=== PATIENT | female | born 1950 | race Caucasian/White ===

== ENCOUNTER 2025-02-21 11:45 | Outpatient (REF) | payer MEDICARE, SELFPAY ==
[2025-02-21 13:51] LABS: Alanine Aminotransferase 21 U/L (0-31); Albumin Level 4.3 g/dL (3.5-5.0); Alkaline Phosphatase 64 U/L (39-117); Aspartate Amino Transferase 23 U/L (5-31); Total Protein 6.8 g/dL (6.5-8.0)
== END 2025-02-21 11:46 | disposition home or self-care (01) ==
LOC: HO.LAB 11:45
PROVIDERS: PCP Family Medicine; Visit Provider Registered Nurse
DX: G40.909 Epilepsy, unspecified, not intractable, without status epilepticus (principal); R25.1 Tremor, unspecified; Z79.899 Other long term (current) drug therapy
CPT/HCPCS: 36415; 80076; 80184; 80185; 84443; 99212

== ENCOUNTER 2025-02-21 11:45 | Outpatient (AMB) | payer MEDICARE, SELFPAY ==
--- OUTSIDE RECORDS SUMMARY | 2025-02-21 11:47 | XMS_ITS | Clinical Summary ---
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 Role Phone Unavailable Primary Care Provider Unavailabl e Social History Tobacco Use Types Packs/Day Years Used Date Smoking Tobacco: Never Assessed Comments Unknown Sex and Gender Information Value Date Recorded Sex Assigned at Not on file Legal Sex Female 1:18 PM EST Gender Identity Not on file Sexual Orientation Not on file Plan of Treatment Health Maintenance Due Date Last Done Comments DTaP,Tdap,and Td Vaccines (1 - Tdap) 07/25/1967 Pneumococcal Vaccine: 50+ Ye ars (1 of 1 - PCV) 1998 Zoster Vaccines (1 of 2) 1998 Falls Risk Assessment 01/27/2022 Hepatitis C Screening 01/27/2022 Osteoporosis Screening (Bone Density Screening) 01/27/2022 Social Influencers of Health Screening 01/27/2022 RSV Immunization Adult Patie nts (1 - 1-dose 75+ series) 07/25/2023 Depression Screening 03/01/2024 COVID-19 Vaccine (1 - 2024-2 6 season) 2024 Influenza Vaccine (#1) 2024 HIB Vaccines Aged Out No longer eligi ble based on patient's age to complete this topic HPV Vaccines Aged Out No longer eligi ble based on patient's age to complete this topic Hepatitis A Vaccines Aged Out No long er eligible based on patient's age to complete this topic Hepatitis B Vaccines Aged Out No long er eligible based on patient's age to complete this topic IPV Vaccines Aged Out No longer eligi ble based on patient's age to complete this topic MMR Vaccines Aged Out No longer eligi ble based on patient's age to complete this topic Meningococcal ACWY Vaccine Aged Out N o longer eligible based on patient's age to complete this topic Meningococcal B Vaccine Aged Out No l onger eligible based on patient's age to complete this topic RSV Immunization Patients Un steph 20 months Aged Out No longer eligible b ased on patient's age to complete this topic Varicella Vaccines Aged Out No longer eligible based on patient's age to complete this topic Advance Directives Documents on File Type Date Recorded 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 Health Care Decision (hx) 01/11/2017 AD PALACIOS DIRECTIVE Health Care Decision (hx) 01/11/2017 AD PALACIOS DIRECTIVE Health Care Decision (hx) 01/11/2017 AD PALACIOS DIRECTIVE Health Care Decision (hx) 01/11/2017 AD PALACIOS DIRECTIVE Health Care Decision (hx) 01/11/2017 AD PALACIOS DIRECTIVE Health Care Decision (hx) 01/11/2017 AD PALACIOS DIRECTIVE Health Care Decision (hx) 01/07/2017 AD PALACIOS DIRECTIVE Health Care Decision (hx) 01/07/2017 AD PALACIOS DIRECTIVE Health Care Decision (hx) 01/07/2017 AD PALACIOS DIRECTIVE Health Care Decision (hx) 01/07/2017 AD PALACIOS DIRECTIVE Health Care Decision (hx) 01/07/2017 AD PALACIOS DIRECTIVE Health Care Decision (hx) 01/07/2017 AD PALACIOS DIRECTIVE
--- OUTSIDE RECORDS SUMMARY | 2025-02-21 11:48 | XMS_ITS | Patient Health Record ---
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 Name Role Phone Reina Patel Primary Care Provider Sb Mayberry Unavailable [phone] Allergies No Known Allergies Reason For Referral No Information Medications Medication SIG (Take, Route, Frequency, Duration) Notes Start Date End Date Status Energy B12 Active Phenytoin 100 MG/4ML 2 mL Orally every 8 hrs; Duration: 30 day(s) Active PHENobarbital 16.2 MG 1 tablet Orally Tw ice a day Active Breo Ellipta 200-25 MCG/ACT 1 puff Inhal ation Once a day Active Albuterol prn Active Famotidine 20 MG 1 tablet at bedtime as needed Orally Once a day; Duration: 30 day(s) Active Meloxicam 15 MG 1 tablet Orally Once a day; Duration: 30 day(s) Active Multivitamin Active Social History Tobacco Use: Social History Observation Description Date Details (start date - stop date) Never Smoker NA - NA Tobacco Use/Smoking Question Answer Notes Are you a: nonsmoker Alcohol Screen Question Answer Notes Did you have a drink containing alcohol in the p ast year? Yes Points 0 Interpretation Negative Tobacco use other than smoking: Question Answer Notes Are you an other tobacco user? 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) Interstitial myositis of left foot (M60.172) Active confirmed Plan Of Treatment Pending Test Test Name Order Date X ray : Foot, left 3V 10/14/2022 Next Appt Details Provider Name:Sb Wynn , 03/28/2025 01:30:00 PM, [address], [address], [place], [address], Insurance Providers Payer Name Payer Address Payer Phone Subscriber Number Group Number Insured Name Patient Relationship to Insured Coverage Start Date Coverage End Date [employer] Medicare [id number] [address] [address] [place] [phone] [id number] Vania Rodriguez Self - patient is the insured Medical (General) History Medical History History ICD Code asthma covid-19 Epilepsy Sinus conditions Measles Chicken pox Surgical History Surgery Date(Month/Year) right knee replacement 2016 endoscopic 2020 basal cell removal 2016
--- NOTE | 2025-02-21 11:50 | A.OFFVIS_ITS ---
Intake Visit Reasons: follow up 6m Allergies No Known Allergies Allergy (Unverified 02/21/25 11:53) Medication List - Last Reconciled 02/21/25 by Lolita Anderson CNP dupilumab (Dupixent) 300 mg subcut Q2W phenobarbital 16.2 mg PO BID 30 days phenytoin sodium extended 200 mg PO Q12H HPI Comments Details: No seizures. She tried primidone, but did not notice any improvement in tremors and stopped medication. Tremors in hands, R > L, worse when holding something in her hand. No significant functional impairment. She sometimes has to hold up steady with two hands. She developed tremor of right hand in 2019. She was RH and has tremor when trying to write, handwriting not so good. One of her brother's has a tremor. Sinus problems are better since starting Dupixent 03/2023, able to smell better and is also breathing better.? Had head traumas at age 4 and 5. She had her first a generalized tonic-clonic seizure at age 19 after the of her second son. She was treated with the Dilantin 400 mg a day. At some point in the phenobarbital was added. She is fairly well controlled and can go 10 yrs without any seizures. Her last seizure was on January 13, 2015, when she had lost her insurance and was using less Dilantin. Review of Systems Const Denies chills, Denies daytime sleepiness, Reports difficulty sleeping, Denies fatigue, Denies fever(s), Denies frequent falls, Denies headache(s), Denies increased appetite, Denies poor appetite, Denies snoring, Denies weakness, Denies weight gain and Denies weight loss Eyes Denies loss of vision ENT Denies vertigo, Denies dizziness, Denies headache(s) and Denies neck pain Card Denies chest pain at rest, Denies chest pain with activity, Denies syncope, Denies leg edema, Denies palpitations, Denies dyspnea and Denies dyspnea on exertion Resp Denies cough, Denies dyspnea, Denies dyspnea on exertion and Denies snoring GI Denies abdominal pain, Denies constipation, Denies heartburn, Denies diarrhea and Denies nausea Denies urinary frequency, Denies urinary incontinence and Denies urinary urgency Musc Denies abnormal gait, Denies back pain, Denies myalgias, Denies arthralgias, Denies neck pain, Denies numbness and Denies tingling Neuro Denies abnormal gait, Denies vertigo, Denies dizziness, Denies syncope, Denies frequent falls, Denies headache(s), Denies lack of coordination, Denies loss of vision, Denies memory loss, Denies numbness, Denies Other visual disturbances, Denies restless legs, Denies seizure-like activity, Denies tingling, Denies paresthesias, Reports tremor(s) and Denies weakness Psych Denies anxiety, Denies depression, Denies auditory hallucinations, Denies memory loss and Denies visual hallucinations Endo Denies fatigue and Denies palpitations Physical Exam Const Other: General Appearance:? normal, in no acute distress. Heart:? S1, S2 normal, no murmurs. Lungs:? clear anteriorly and posteriorly. Musculoskeletal:? normal. Extremities:? no edema. Psych:? alert, oriented, cognitive function intact, cooperative with exam. Neuro Other: Abnormal Neurological Findings:?Mild tremor of BUE on sustained posture, R > L. Absent ankle reflexes. Mental Status: alert and oriented X 3. Normal attention, orientation, memory, and affect. Cranial Nerves: Pupils are equal, round, and reactive to light. External ocular muscles are intact. Visual cheung are full, no ptosis. Face is symmetrical, no facial weakness or droop. Facial sensations are normal. Tongue protrudes in midline. Palate elevates symmetrically. Shoulder shrugging is normal Motor Examination: As above. Sensory Exam: Normal light touch, temperature, pinprick, vibration, and joint- position sensations. Rhomberg sign is absent. Coordination: No ataxia. No titubation. Gait Exam: Within normal limits. Cerebellar Signs: [id number] is okay. Extrapyramidal System: Tremor as above. No rigidity with normal facial expressions. No bradykinesia. No bradyphrenia. Normal arm swing and posture. No propulsion or retropulsion. Speech: Normal. Assessment & Plan Assessment & Plan (1) Epilepsy: Code(s): G40.909 - Epilepsy, unspecified, not intractable, without status epilepticus Category: Medical Qualifiers: Epilepsy type: unspecified Intractability: not intractable Status epilepticus: without status epilepticus Qualified Code(s): G40.909 - Epilepsy, unspecified, not intractable, without status epilepticus Plan: Continue phenytoin sodium extended capsule 100mg 2 capsules every 12 hours. Continue phenobarbital 16.2mg 1 tablet twice a day. Reviewed labs ordered. (2) Tremor: Code(s): R25.1 - Tremor, unspecified Category: Medical Plan: Primidone did not help and she stopped medication. Plan Meds tried: primidone Orders: Orders Phenytoin Dilantin Today G40.909 - Epilepsy, unspecified, not intractable, without status epilepticus Phenobarbital Today G40.909 - Epilepsy, unspecified, not intractable, without status epilepticus TSH reflex Free T4 Today R25.1 - Tremor, unspecified Liver Panel Today G40.909 - Epilepsy, unspecified, not intractable, without status epilepticus Coding Level of Care Code Est Pt Level 4 (16716) Diagnoses Nonintractable epilepsy without status epilepticus, unspecified epilepsy type G40.909 Epilepsy type: unspecified Intractability: not intractable Status epilepticus: without status epilepticus Tremor R25.1
== END 2025-02-21 12:11 | disposition home or self-care (01) ==
LOC: HO.HSM 11:45
PROVIDERS: PCP Family Medicine; Visit Provider Registered Nurse
DX: G40.909 Epilepsy, unspecified, not intractable, without status epilepticus (principal); R25.1 Tremor, unspecified
CPT/HCPCS: 99214